=== PATIENT | female | born 1980 | race Caucasian/White ===

== ENCOUNTER → 2016-07-24 | Outpatient (CLI) | payer BC, OTHER | LOC: FIMAGING 14:14 | PROVIDERS: ATTEND Registered Nurse General Practice | DX: Z12.39 Encounter for other screening for malignant neoplasm of breast (principal); N64.52 Nipple discharge | CPT/HCPCS: G0204; G0279 ==

== ENCOUNTER 2016-08-29 11:25 | Inpatient (IN) | payer BC, OTHER ==
[2016-08-29 12:06] LABS: % IMMATURE GRANULYOCYTES 0.4 % (0.0-1.1); ABSOLUTE IMMATURE GRANULOCYTES 0.05 10^3/uL (0.00-0.10); ADD DIFF? NO; ADD MORPH? NO; ADD SCAN? NO; ATYPICAL LYMPHOCYTE FLAG 0 (0-99); FRAGMENT RBC FLAG 0 (0-99); HEMATOCRIT 40.6 % (38.0-47.0); HEMOGLOBIN 13.7 g/dL (12.6-16.3); LEFT SHIFT FLG 0 (0-99); LIPEMIA HEMOLYSIS FLAG 80 (0-99); MEAN CELL HEMOGLOBIN 28.8 pg (27.9-34.1); MEAN CELL HEMOGLOBIN CONCENTR. 33.7 g/dL (32.4-36.7); MEAN CELL VOLUME 85.3 fL (81.5-99.8); MEAN PLATELET VOLUME 9.2 fL (8.7-11.7); PLATELET CLUMPS FLAG 0 (0-99); PLATELET COUNT 253 10^3/uL (150-400); RED BLOOD CELL COUNT 4.76 10^6/uL (4.18-5.33); RED CELL DISTRIBUTION WIDTH 12.7 % (11.5-15.2)
[2016-08-29] MEDS ORDERED: HYDROmorphONE/DILAUDID 1 MG/ML SYR IVP ONE ×2 (12:19→14:54)
[2016-08-29] MEDS ORDERED: NS 1,000 ML IV ONE ×2 (12:19→23:30)
[2016-08-29] MEDS ORDERED: ONDANSETRON 4 MG/2 ML VIAL IVP ONE (12:19)
[2016-08-29 12:41] LABS: ANION GAP 14 mEq/L (8-16); CALCIUM 9.4 mg/dL (8.5-10.4); CARBON DIOXIDE 25 mEq/l (22-31); CHLORIDE 97 mEq/L (97-110); CREATININE 0.6 mg/dL (0.6-1.0); GLOMERULAR FILTRATION RATE > 60; GLUCOSE 84 mg/dL (70-100); POTASSIUM 4.2 mEq/L (3.5-5.2); SODIUM 136 mEq/L (134-144)
[2016-08-29 12:47] LABS: COLOR YELLOW; LEUKOCYTE ESTERASE,URINE NEGATIVE (NEGATIVE); NITRITE,URINE NEGATIVE (NEGATIVE)
[2016-08-29 12:52] LABS: WBC,URINE NONE SEEN /hpf (0-3)
[2016-08-29] MEDS ORDERED: IOPAMIDOL (ISOVUE-300) 100 ML BTL IV ONE (13:23)
--- NOTE | 2016-08-29 13:32 | EDPHY ---
H & P Time Seen by Provider: 08/29/16 11:40 HPI/ROS: CHIEF COMPLAINT: Abdominal pain HISTORY OF PRESENT ILLNESS: 35-year-old female presents to the emergency department by private vehicle complaining of severe pain in her right lower quadrant since Saturday. She denies any known trauma or injury. Patient feels nauseous although no vomiting. Last bowel movement was yesterday. The last normal menstrual period ended last week. No fevers or chills. No chest pain or difficulty breathing. No urinary symptoms. No back pain. REVIEW OF SYSTEMS: Constitutional: No fever, no chills. Eyes: No double or blurry vision. ENT: No sore throat. Respiratory: No cough, no shortness of breath. Cardiac: No chest pain. Gastrointestinal: Abdominal pain as above. No vomiting or diarrhea. Genitourinary: No dysuria. Musculoskeletal: No neck or back pain. Skin: No rashes. Neurological: No headache. Past Medical/Surgical History: Negative Social History: and lives in [place] Smoking Status: Never smoked Physical Exam: General Appearance: Alert, no distress. 37.1, 97% on room air, 118/80 Eyes: Pupils equal and round. Extraocular motions are all intact. ENT: Mouth: Mucous membranes moist. Respiratory: No wheezing, rhonchi, or rales, lungs are clear to auscultation. Cardiovascular: Regular rate and rhythm. Gastrointestinal: Abdomen is soft. She has tenderness with palpation in her right lower quadrant especially over McBurney's point. There is no rebound, guarding or masses noted. No CVA tenderness bilaterally. Neurological: Alert and oriented x 3, cranial nerves II through XII grossly intact Skin: Warm and dry, no rashes. Musculoskeletal: Nontender to palpate along the cervical, thoracic or lumbar spine. Neck is supple. Extremities: Full range of motion and no peripheral edema. Psychiatric: Patient is oriented X 3, there is no agitation. Constitutional: Initial Vital Signs Temperature (C) 37.1 C 08/29/16 11:34 Heart Rate 80 08/29/16 11:34 Respiratory Rate 18 08/29/16 11:34 Blood Pressure 118/80 08/29/16 11:34 O2 Sat (%) 97 08/29/16 11:34 O2 Delivery Mode Nasal Cannula O2 (L/minute) 2 Allergies/Adverse Reactions: No Known Allergies Allergy (Verified 08/29/16 11:33) Home Medications: Medication Instructions Recorded Sertraline HCl [Zoloft 50mg (*)] 50 mg PO HS 09/05/15 Herbals/Supplements -Info Only 1 ea PO DAILY 08/29/16 Medical Decision Making - Diagnostics Imaging: Imaging Impressions Abdomen CT 08/29/16 12:46 Impression: 1. Appendicitis with periappendiceal abscess measuring 2.9 x 3.8 x 2.5 cm. 2. Mild hepatomegaly with generalized steatosis. Dr. Anish Childers discussed the findings with JEFFERSON ZUÑIGA PA-C at 14 :07, on 08/29/2016. CT imaging of the abdomen and pelvis was reported to me by Dr. Anish Childers and also reviewed by myself and the PAC system and revealed perforated appendix with small abscess. ED Course/Re-evaluation: 35-year-old female presents with worsening right lower quadrant abdominal pain since Saturday. She has had subjective fevers. She last ate food at 7:30 a.m. this morning. Last drink water around noon. Patient was kept NPO in the emergency department. She was receiving IV normal saline. White blood cell count reveals over 13,000. Chemistries are within normal limits. HCG is negative. CT imaging of the abdomen and pelvis with IV contrast reveals perforated appendix with small abscess. The patient is a [facility] patient and I contacted Dr. Walter Hector who is on-call for General surgery for the [facility]. Dr. Walter Hector agrees with 1 g IV Invanz. The patient was kept NPO. Dr. Walter Hector will evaluate this patient in the emergency department. A bed has been ordered. Differential Diagnosis: Including but not limited to acute appendicitis, ovarian cyst, ovarian torsion, urinary tract infection, pyelonephritis, kidney stone, mesenteric adenitis - Data Points Laboratory Results: Laboratory Results 08/29/16 11:56 08/29/16 11:56 08/29/16 08/29/16 08/29/16 12:15 11:56 11:56 WBC RBC Hgb Hct MCV MCH MCHC RDW Plt Count MPV Neut % (Auto) Lymph % (Auto) [place] % (Auto) Eos % (Auto) Baso % (Auto) Nucleat RBC Rel Count Absolute Neuts (auto) Absolute Lymphs (auto) Absolute Monos (auto) Absolute Eos (auto) Absolute Basos (auto) Absolute Nucleated RBC Immature Gran % Immature Gran # Sodium 136 mEq/L mEq/L (134-144) Potassium 4.2 mEq/L mEq/L (3.5-5.2) Chloride 97 mEq/L mEq/L (97-110) Carbon Dioxide 25 mEq/l mEq/l (22-31) Anion Gap 14 mEq/L mEq/L (8-16) BUN 12 mg/dL mg/dL (7-23) Creatinine 0.6 mg/dL mg/dL (0.6-1.0) Estimated GFR > 60 Glucose 84 mg/dL mg/dL (70-100) Calcium 9.4 mg/dL mg/dL (8.5-10.4) Beta HCG, Qual NEGATIVE Urine Color YELLOW Urine Appearance CLEAR Urine pH 7.0 (5.0-7.5) Ur Specific [place] 1.013 (1.002-1.030) Urine Protein NEGATIVE (NEGATIVE) Urine Ketones NEGATIVE (NEGATIVE) Urine Blood NEGATIVE (NEGATIVE) Urine Nitrate NEGATIVE (NEGATIVE) Urine Bilirubin NEGATIVE (NEGATIVE) Urine Urobilinogen NEGATIVE EU EU (0.2-1.0) Ur Leukocyte Esterase NEGATIVE (NEGATIVE) Urine RBC 1-3 /hpf /hpf (0-3) Urine WBC NONE SEEN /hpf /hpf (0-3) Ur Epithelial Cells TRACE /lpf /lpf (NONE-1+) Urine Glucose NEGATIVE (NEGATIVE) 08/29/16 11:56 WBC 13.39 10^3/uL H 10^3/uL (3.80-9.50) RBC 4.76 10^6/uL 10^6/uL (4.18-5.33) Hgb 13.7 g/dL g/dL (12.6-16.3) Hct 40.6 % % (38.0-47.0) MCV 85.3 fL fL (81.5-99.8) MCH 28.8 pg pg (27.9-34.1) MCHC 33.7 g/dL g/dL (32.4-36.7) RDW 12.7 % % (11.5-15.2) Plt Count 253 10^3/uL 10^3/uL (150-400) MPV 9.2 fL fL (8.7-11.7) Neut % (Auto) 81.2 % H % (39.3-74.2) Lymph % (Auto) 12.5 % L % (15.0-45.0) [place] % (Auto) 5.3 % % (4.5-13.0) Eos % (Auto) 0.4 % L % (0.6-7.6) Baso % (Auto) 0.2 % L % (0.3-1.7) Nucleat RBC Rel Count 0.0 % % (0.0-0.2) Absolute Neuts (auto) 10.87 10^3/uL H 10^3/uL (1.70-6.50) Absolute Lymphs (auto) 1.67 10^3/uL 10^3/uL (1.00-3.00) Absolute Monos (auto) 0.71 10^3/uL 10^3/uL (0.30-0.80) Absolute Eos (auto) 0.06 10^3/uL 10^3/uL (0.03-0.40) Absolute Basos (auto) 0.03 10^3/uL 10^3/uL (0.02-0.10) Absolute Nucleated RBC 0.00 10^3/uL 10^3/uL (0-0.01) Immature Gran % 0.4 % % (0.0-1.1) Immature Gran # 0.05 10^3/uL 10^3/uL (0.00-0.10) Sodium Potassium Chloride Carbon Dioxide Anion Gap BUN Creatinine Estimated GFR Glucose Calcium Beta HCG, Qual Urine Color Urine Appearance Urine pH Ur Specific [place] Urine Protein Urine Ketones Urine Blood Urine Nitrate Urine Bilirubin Urine Urobilinogen Ur Leukocyte Esterase Urine RBC Urine WBC Ur Epithelial Cells Urine Glucose Medications Given: Discontinued Medications Hydromorphone HCl (Dilaudid) 1 mg IVP EDNOW ONE Stop: 08/29/16 12:20 Last Admin: 08/29/16 12:38 Dose: 1 mg Sodium Chloride (Ns) 1,000 mls @ 0 mls/hr IV ONCE ONE PRN Reason: Wide Open Stop: 08/29/16 12:20 Last Admin: 08/29/16 12:38 Dose: 1,000 mls Ertapenem 1 gm/ Sodium (Chloride) 100 mls @ 200 mls/hr IV EDNOW ONE PRN Reason: Protocol Stop: 08/29/16 14:37 Last Admin: 08/29/16 14:15 Dose: 100 mls Ondansetron HCl (Zofran) 4 mg IVP EDNOW ONE Stop: 08/29/16 12:20 Last Admin: 08/29/16 12:39 Dose: 4 mg Departure - Departure Disposition: [facility] Acute Clinical Impression: Perforated appendix Condition: Good
[2016-08-29] MEDS ORDERED: ERTAPENEM 1 GM in NS 100 ML IV ONE (14:08)
[2016-08-29] MEDS ORDERED: BUPIVACAINE 0.25% 30 ML SDV ONE (15:36)
[2016-08-29] MEDS ORDERED: MIDAZOLAM 2 MG/2 ML VIAL ONE (16:06)
--- NOTE | 2016-08-29 16:07 | PDGENHP ---
History and Physical History and Physical: CC: Abd Pain HPI: 35 y/o female with right sided abdominal pain since Saturday. She has felt fatigued but denies fever, chills, vomiting, diarrhea. She presented to the ER and was seen by Shauna Maxwell PA-C and a CT showed a ruptured appendix. 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 immediated appendectomy with drainage abscess. She would prefer going ahead with surgery, which I have recommended by performed open. We discussed the risks and expected recovery. Informed consent was obtained. She has received one gram of Ertapenam in the ER S MD Krunal, FACS
[2016-08-29] MEDS ORDERED: fentaNYL 100 MCG/2 ML INJ ONE (16:08)
[2016-08-29] MEDS ORDERED: PROPOFOL/EMULSION 500 MG/50 ML BOTTLE IV ONE (16:09)
--- NOTE | 2016-08-29 17:20 | POSTOPPROG ---
Post Op Note Date of Operation: 08/29/16 Surgeon: Walter Hector Anesthesiologist: Mainor Madden MD Anesthesia: GET(General Endotracheal) Pre-op Diagnosis: ruptured appendicitis Post-op Diagnosis: same Procedure: appendectomy and drainage abscess Findings: retrocecal appendix with abscess Inf/Abcess present in the surg proc area at time of surgery?: Yes Depth: Organ Space EBL: Minimal Drains: Delphine Mcpherson
[2016-08-29] MEDS ORDERED: ZOLPIDEM TARTRATE 5 MG TAB PO PRN (17:21)
[2016-08-29] MEDS ORDERED: ONDANSETRON 4 MG/2 ML VIAL IVP PRN (17:21)
[2016-08-29] MEDS: HYDROmorphONE/DILAUDID 1 MG/ML SYR IVP PRN ×3 (18:28→21:36)
[2016-08-29] MEDS: SERTRALINE HCL 50 MG TAB PO SCH (20:25)
[2016-08-29] MEDS: IBUPROFEN 600 MG TAB PO SCH (20:25)
[2016-08-29] MEDS: LR 1,000 ML IV SCH (20:28)
[2016-08-30] MEDS: IBUPROFEN 600 MG TAB PO SCH ×3 (04:42→21:53)
[2016-08-30] MEDS: HYDROmorphONE/DILAUDID 1 MG/ML SYR IVP PRN ×2 (04:42→08:34)
[2016-08-30] MEDS: LR 1,000 ML IV SCH (08:34)
[2016-08-30] MEDS: ERTAPENEM 1 GM in NS 100 ML IV SCH (08:34)
[2016-08-30] MEDS: ENOXAPARIN 40 MG/0.4 ML SYR SC SCH (08:35)
--- NOTE | 2016-08-30 09:21 | SOAPPROG ---
SOAP Progress Note Assessment/Plan: Assessment: s/p appendectomy with abscess drainage, stable. Cont FATOUMATA, abx, clears for now. If she improves will advance diet. Discussed signs/symptoms of concern, questions answered. Plan: 08/30/16 09:19 Subjective: Patient feels better, pain controlled with IV meds. No N/V. Ambulating, voiding. No BM. Objective: Vital Signs Temp Pulse Resp BP Pulse Ox 36.6 C 63 16 89/61 L 97 08/30/16 07:29 08/30/16 07:29 08/30/16 07:29 08/30/16 07:29 08/30/16 07:29 Microbiology 08/29/16 16:40 Gram Stain - Final Appendix - Eswab 08/29/16 08/30/16 08/31/16 05:59 05:59 05:59 Intake Total 4172 Output Total 500 Balance 3672 Alert, NAD RRR Abd soft, inc TTP Inc C/D/I FATOUMATA serosang ICD10 Worksheet Patient Problems: Problems Problem Status Onset Perforated appendix Acute Anemia due to acute blood loss Acute [place]'s syndrome Acute (spontaneous vaginal delivery) Acute
[2016-08-30] MEDS: HYDROCODONE/APAP 5/325 TAB PO PRN ×3 (11:28→19:50)
[2016-08-30] MEDS: SERTRALINE HCL 50 MG TAB PO SCH (19:50)
[2016-08-31 04:51] VITALS: RESP 16
[2016-08-31] MEDS: IBUPROFEN 600 MG TAB PO SCH ×3 (04:56→19:34)
[2016-08-31] MEDS: ERTAPENEM 1 GM in NS 100 ML IV SCH (08:31)
[2016-08-31] MEDS: ENOXAPARIN 40 MG/0.4 ML SYR SC SCH (08:31)
[2016-08-31] MEDS ORDERED: OXYCODONE/APAP 5/325 TAB PO PRN (09:07)
--- NOTE | 2016-08-31 09:09 | SOAPPROG ---
SOAP Progress Note Assessment/Plan: Assessment: s/p appendectomy with abscess drainage, improving. FATOUMATA d/c'd. Switch to po abx. Plan: 08/30/16 09:19 08/31/16 09:08 Subjective: Patient feels better, ayse reg diet. Ambulating. Objective: Vital Signs Temp Pulse Resp BP Pulse Ox 36.8 C 78 16 98/64 L 92 08/31/16 08:12 08/31/16 08:12 08/31/16 08:12 08/31/16 08:12 08/31/16 08:12 Microbiology 08/29/16 16:40 Gram Stain - Final Appendix - Eswab 08/30/16 08/31/16 09/01/16 05:59 05:59 05:59 Intake Total 4172 2350 Output Total 500 3530 605 Balance 2542 -1180 -605 Alert, NAD RRR Abd soft, NTTP Inc C/D/I FATOUMATA serosang ICD10 Worksheet Patient Problems: Problems Problem Status Onset Perforated appendix Acute Anemia due to acute blood loss Acute Yari's syndrome Acute (spontaneous vaginal delivery) Acute
[2016-08-31] MEDS: AMOXICILLIN/CLAVULANATE POT 875/125 MG TAB PO SCH ×2 (09:26→19:34)
[2016-08-31] MEDS: SERTRALINE HCL 50 MG TAB PO SCH (19:34)
[2016-09-01] MEDS: IBUPROFEN 600 MG TAB PO SCH (06:53)
[2016-09-01 07:46] VITALS: BP 104/70; PULSE 64; TEMP 97.9; O2SAT 89
[2016-09-01] MEDS: ENOXAPARIN 40 MG/0.4 ML SYR SC SCH (09:01)
[2016-09-01] MEDS: AMOXICILLIN/CLAVULANATE POT 875/125 MG TAB PO SCH (09:01)
== END 2016-09-01 12:04 | disposition home or self-care (01) | DRG 340 ==
LOC: OBSVTOIN 14:10 → F3E 18:07
PROVIDERS: ADMIT Surgery; ATTEND Surgery
PROC: 0DTJ0ZZ Resection of Appendix, Open Approach (ICD-10-PCS; principal; 2016-08-29 14:30)
DX: K35.3 Acute appendicitis with localized peritonitis (principal); R16.0 Hepatomegaly, not elsewhere classified
CPT/HCPCS: 96365; J1170; J1335; J1650; J2250; J2405; J2704; J3010; Q9967